=== PATIENT | female | born 1990 | race African-American/Black ===

== ENCOUNTER 2018-09-27 14:50 | Observation (INO) | payer MEDICAID ==
[~2018-09-27] VITALS: Ht 160 cm; Wt 86.2 kg
[~2018-09-27 14:50] MED LIST: NONE REPORTED
[2018-09-27] MEDS ORDERED: PNV1TABL50 PO (15:27)
[2018-09-27] MEDS ORDERED: ACETAMINOPHEN 500MG TABLET PO NR (15:30)
[2018-09-27] MEDS ORDERED: SODIUM CHLORIDE 0.9% 1,000 ML IV NR (15:30)
[2018-09-27 16:23] LABS: CLARITY URINE CLEAR (CLEAR); COLOR URINE YELLOW (YELLOW); KETONES URINE TRACE (NEGATIVE); LEUKOCYTE ESTERASE URINE 1+ (NEGATIVE); NITRITE URINE NEGATIVE (NEGATIVE); OCCULT BLOOD URINE 1+ (NEGATIVE); PH URINE 6.5 (4.5-8.0); PROTEIN URINE NEGATIVE (NEGATIVE); SPECIFIC GRAVITY URINE 1.035 (1.005-1.030)
[2018-09-27] MEDS ORDERED: CEFAZOLIN 2,000 MG in DEXT 5% WATER 100 ML IV SCH (17:00)
== END 2018-09-27 17:45 | disposition home or self-care (01) ==
LOC: 8 EST LDRP 14:50
PROVIDERS: ADMIT Specialist; ATTEND Specialist
DX: O26.852 Spotting complicating pregnancy, second trimester (principal); O26.892 Other specified pregnancy related conditions, second trimester; R10.30 Lower abdominal pain, unspecified; M54.5 Low back pain; N89.8 Other specified noninflammatory disorders of vagina; Z3A.23 23 weeks gestation of pregnancy
CPT/HCPCS: 81003; 96365; 99281; G0378; J0690; J7060; 96360; 96361

== ENCOUNTER 2018-12-06 10:39 | Observation (INO) | payer MEDICAID ==
[~2018-12-06] VITALS: Ht 160 cm; Wt 96.2 kg
[~2018-12-06 10:39] MED LIST changes: -NONE REPORTED; +PNV1TABL50 PO
[2018-12-06] MEDS: LACTATED RINGERS 1,000 ML IV SCH ×2 (12:07→12:50)
[2018-12-06 12:12] LABS: CLARITY URINE CLEAR (CLEAR); COLOR URINE YELLOW (YELLOW); KETONES URINE TRACE (NEGATIVE); LEUKOCYTE ESTERASE URINE 2+ (NEGATIVE); NITRITE URINE NEGATIVE (NEGATIVE); OCCULT BLOOD URINE TRACE (NEGATIVE); PH URINE 6.5 (4.5-8.0); PROTEIN URINE TRACE (NEGATIVE); SPECIFIC GRAVITY URINE 1.028 (1.005-1.030)
[2018-12-06] MEDS ORDERED: CEFAZOLIN 2,000 MG in DEXT 5% WATER 100 ML IV SCH (12:45)
== END 2018-12-06 14:30 | disposition home or self-care (01) ==
LOC: 8 EST LDRP 10:39
PROVIDERS: ADMIT Specialist; ATTEND Specialist
DX: O26.893 Other specified pregnancy related conditions, third trimester (principal); R10.30 Lower abdominal pain, unspecified; Z3A.33 33 weeks gestation of pregnancy
CPT/HCPCS: 81003; 87086; 96365; 99281; G0378; J0690; J7060; 96360; 96361

== ENCOUNTER 2018-12-25 16:03 | Emergency (ER) | payer MEDICAID ==
[~2018-12-25] VITALS: Ht 162.6 cm; Wt 96.0 kg
[2018-12-25 16:43] VITALS: BP 114/80
[2018-12-25] MEDS ORDERED: ACETAMINOPHEN 325MG TABLET PO ONE (17:00)
== END 2018-12-25 17:41 | disposition home or self-care (01) ==
LOC: ER 16:03
DX: O26.893 Other specified pregnancy related conditions, third trimester (principal); Z3A.36 36 weeks gestation of pregnancy; K02.9 Dental caries, unspecified; Z98.890 Other specified postprocedural states
CPT/HCPCS: 99282

== ENCOUNTER 2019-01-15 13:48 | Observation (INO) | payer SELFPAY ==
[~2019-01-15] VITALS: Ht 160 cm; Wt 97.5 kg
[2019-01-15 14:43] LABS: CLARITY URINE CLEAR (CLEAR); COLOR URINE YELLOW (YELLOW); KETONES URINE TRACE (NEGATIVE); LEUKOCYTE ESTERASE URINE 1+ (NEGATIVE); NITRITE URINE NEGATIVE (NEGATIVE); OCCULT BLOOD URINE NEGATIVE (NEGATIVE); PROTEIN URINE TRACE (NEGATIVE); SPECIFIC GRAVITY URINE 1.027 (1.005-1.030)
== END 2019-01-15 15:30 | disposition home or self-care (01) ==
LOC: 8 EST LDRP 13:48
PROVIDERS: ADMIT Obstetrics & Gynecology; ATTEND Obstetrics & Gynecology
DX: O26.893 Other specified pregnancy related conditions, third trimester (principal); R10.9 Unspecified abdominal pain; M54.9 Dorsalgia, unspecified; Z3A.39 39 weeks gestation of pregnancy
CPT/HCPCS: 81003; 99281; G0378

== ENCOUNTER 2019-04-20 22:29 | Emergency (ER) | payer MEDICAID | END 2019-04-21 00:15 | disposition left against medical advice (07) | LOC: ER 22:29 | DX: Z53.21 Procedure and treatment not carried out due to patient leaving prior to being seen by health care provider (principal) ==

== ENCOUNTER 2020-06-03 12:39 | Emergency (ER) | payer MEDICAID ==
[~2020-06-03] VITALS: Ht 167.6 cm; Wt 70.0 kg
[2020-06-03 13:29] LABS: BASOPHILS % 0.3 % (0.0-2.0); EOSINOPHILS % 1.9 % (0.0-5.0); HEMATOCRIT. 36.6 % (36.0-48.0); HEMOGLOBIN. 12.3 g/dL (12.0-16.0); LYMPHOCYTES % 24.9 % (20.0-50.0); MEAN CORPUSCULAR HEMOGLOBIN 31.1 pg (28.0-32.0); MEAN CORPUSCULAR VOLUME 92.4 fL (81.0-99.0); MEAN PLATELET VOLUME 8.4 fl (7.4-10.4); MONOCYTES % 8.2 % (2.0-8.0); NEUTROPHILS % 64.7 % (40.0-76.0); PLATELET 242 x1000/uL (130-400); RED BLOOD CELL COUNT 3.96 mill/uL (4.2-5.4); RED CELL DISTRIBUTION WIDTH 13.1 % (11.6-14.6)
[2020-06-03 13:42] LABS: INR 0.9; PROTHROMBIN TIME 9.8 sec (9.6-11.0)
[2020-06-03] MEDS ORDERED: LORAZEPAM 2MG/ML CPJ IV ONE (13:45)
[2020-06-03 13:47] LABS: CHLORIDE 105 mEq/L (98-107)
[2020-06-03 14:23] LABS: B-HCG QUANTITATIVE 87817 mIU/mL (<3)
[2020-06-03] MEDS ORDERED: DEXAMETHASONE 4MG/ML 1ML VIAL IV ONE (15:00)
[2020-06-03] MEDS ORDERED: ACETAMINOPHEN 325MG TABLET PO NR (15:30)
[2020-06-03 18:03] LABS: *AMPHETAMINES SCREEN URINE NEGATIVE (NEGATIVE); *BARBITURATES SCREEN URINE NEGATIVE (NEGATIVE); *BENZODIAZEPINES SCREEN URINE NEGATIVE (NEGATIVE); OPIATES URINE SCREEN NEGATIVE (NEGATIVE); PHENCYCLIDINE URINE SCREEN NEGATIVE (NEGATIVE)
[2020-06-03 18:04] LABS: *COCAINE SCREEN URINE NEGATIVE (NEGATIVE); METHADONE URINE SCREEN NEGATIVE (NEGATIVE)
[2020-06-03 18:07] LABS: CANNABINOID URINE SCREEN PRESUMTIVE POSITIVE (NEGATIVE)
[2020-06-03 18:25] VITALS: BP 126/85
== END 2020-06-03 18:30 | disposition short-term general hospital (02) ==
LOC: ER 12:39 → CANBEDREQ 19:49
DX: O26.891 Other specified pregnancy related conditions, first trimester (principal); O99.411 Diseases of the circulatory system complicating pregnancy, first trimester; I61.8 Other nontraumatic intracerebral hemorrhage; R56.9 Unspecified convulsions; I69.354 Hemiplegia and hemiparesis following cerebral infarction affecting left non-dominant side; Z3A.11 11 weeks gestation of pregnancy
CPT/HCPCS: 36415; 70551; 76801; 80053; 80305; 81025; 82962; 84702; 85025; 85610; 86850; 86900; 86901; 93005; 96374; 96375; 99285; J1100; J2060

== ENCOUNTER 2020-10-12 03:39 | Emergency (ER) | payer MEDICAID ==
[~2020-10-12] VITALS: Ht 165.1 cm; Wt 90.0 kg
[2020-10-12] MEDS ORDERED: ONDANSETRON HCL 4MG/2ML INJ IV STA (03:54)
[2020-10-12] MEDS ORDERED: SODIUM CHLORIDE 0.9% 1,000 ML IV ONE (04:00)
[2020-10-12] MEDS ORDERED: LEVETIRACETAM 500MG PREMIX 100 ML IV ONE (04:00)
[2020-10-12] MEDS ORDERED: MAGNESIUM 2 G PREMIX 50 ML IV ONE (04:00)
[2020-10-12 05:41] LABS: BASOPHILS % 0.6 % (0.0-2.0); EOSINOPHILS % 2.9 % (0.0-5.0); HEMATOCRIT. 35.8 % (36.0-48.0); HEMOGLOBIN. 11.7 g/dL (12.0-16.0); LYMPHOCYTES % 21.3 % (20.0-50.0); MEAN CORPUSCULAR HEMOGLOBIN 29.8 pg (28.0-32.0); MEAN CORPUSCULAR VOLUME 91.4 fL (81.0-99.0); MONOCYTES % 10.6 % (2.0-8.0); NEUTROPHILS % 64.6 % (40.0-76.0); PLATELET 187 x1000/uL (130-400); RED BLOOD CELL COUNT 3.92 mill/uL (4.2-5.4); RED CELL DISTRIBUTION WIDTH 14.1 % (11.6-14.6)
[2020-10-12 05:50] LABS: INR 0.9
[2020-10-12 05:51] LABS: CHLORIDE 111 mEq/L (98-107)
[2020-10-12 06:23] VITALS: BP 109/69
== END 2020-10-12 07:15 | disposition home or self-care (01) ==
LOC: ER 03:39
DX: O26.893 Other specified pregnancy related conditions, third trimester (principal); Z3A.32 32 weeks gestation of pregnancy; R56.9 Unspecified convulsions; Z86.73 Personal history of transient ischemic attack (TIA), and cerebral infarction without residual deficits
CPT/HCPCS: 36415; 76805; 76818; 80053; 85025; 85610; 93005; 96365; 96368; 96375; 99285; J1953; J2405; J3475; J7030

== ENCOUNTER 2020-10-12 07:20 | Observation (INO) | payer MEDICAID ==
[~2020-10-12] VITALS: Ht 157.5 cm; Wt 93.0 kg
[2020-10-12] MEDS ORDERED: LABETALOL HCL 5MG/ML VIAL 20ML IV PRN ×6 (08:15)
[2020-10-12] MEDS ORDERED: HYDRALAZINE 20MG/ML VIAL IV PRN ×4 (08:15)
[2020-10-12] MEDS ORDERED: NIFEDIPINE 10MG CAPSULE PO PRN ×2 (08:15)
== END 2020-10-12 12:15 | disposition home or self-care (01) ==
LOC: 8 EST LDRP 07:20
PROVIDERS: ADMIT Obstetrics & Gynecology; ATTEND Obstetrics & Gynecology
DX: O16.3 Unspecified maternal hypertension, third trimester (principal); O99.353 Diseases of the nervous system complicating pregnancy, third trimester; R56.9 Unspecified convulsions; Z72.0 Tobacco use; Z3A.30 30 weeks gestation of pregnancy
CPT/HCPCS: 59025; G0378; 99281

== ENCOUNTER 2022-08-23 21:39 | Observation (INO) | payer MEDICAID ==
[~2022-08-23] VITALS: Ht 162.6 cm; Wt 104.3 kg
[2022-08-24] MEDS ORDERED: PNV1TABL50 MT (01:13)
[2022-08-24] MEDS ORDERED: PNV1TABL59 PO (01:26)
== END 2022-08-24 01:35 | disposition home or self-care (01) ==
LOC: 8 EST LDRP 21:39
PROVIDERS: ADMIT Obstetrics & Gynecology; ATTEND Obstetrics & Gynecology
DX: O62.9 Abnormality of forces of labor, unspecified (principal); Z3A.32 32 weeks gestation of pregnancy
CPT/HCPCS: 59025; 76805; 76818; 82731; G0378; 99281; G0379

== ENCOUNTER 2024-08-11 00:14 | Emergency (ER) | payer MEDICAID ==
[~2024-08-11] VITALS: Ht 160 cm; Wt 100.0 kg
[~2024-08-11 00:14] MED LIST changes: -PNV1TABL50 PO; +PNV1TABL59 PO
[2024-08-11 00:19] VITALS: O2SAT 100
[2024-08-11 00:25] VITALS: BP 121/81; PULSE 98; RESP 18; TEMP 98.3; O2SAT 100
[2024-08-11] MEDS: BACITRACIN ZINC OINT UDPKT TOP ONE (01:30)
[2024-08-11] MEDS: LIDOCAINE HCL/PF 1% 10 MG/ML 5ML VIAL INFIL ONE (01:30)
[2024-08-11] MEDS ORDERED: TETANUS, DIPHTHERIA, PERTUSSIS VAC/PF 0.5ML (>10YR OLD) IM ONE ×2 (01:30→04:30)
[2024-08-11] MEDS ORDERED: CEPH500C2 MT (03:24)
== END 2024-08-11 07:22 | disposition home or self-care (01) ==
LOC: ER 01:07
DX: S61.216A Laceration without foreign body of right little finger without damage to nail, initial encounter (principal); Z86.73 Personal history of transient ischemic attack (TIA), and cerebral infarction without residual deficits; Z86.59 Personal history of other mental and behavioral disorders; W26.0XXA Contact with knife, initial encounter; Y93.89 Activity, other specified; Y92.89 Other specified places as the place of occurrence of the external cause; Y99.8 Other external cause status
CPT/HCPCS: 90715; 12002; 90471; 99283; J3490; Z7610 ×4